=== PATIENT | male | born 1990 | race Caucasian/White ===

== ENCOUNTER 2017-10-26 03:40 | Emergency (ER) | payer OTHER ==
[2017-10-26] MEDS ORDERED: GLUCAGON HCL 1 MG VIAL IM ONE (04:43)
--- NOTE | 2017-10-26 05:48 | EDPHY ---
H & P Stated Complaint: piece of food stuck in throat Time Seen by Provider: 10/26/17 05:27 HPI/ROS: HPI The patient presents with foreign body sensation in his left throat which has been present for the last several hours. Last night, he ate a dinner at 7:00 p.m. Which included a Kale salad. He feels he got a large piece of scale lodged in his throat. He was able to go to sleep but awoke choking and coughing. He was able to drink water without difficulty. He does not notice any drooling or vomiting. He was able to eat cereal and felt that it went down , though took a bit more time than usual. He does have a history of esophagitis. Found on endoscopy about 2 years ago in [place]. He did not tolerate PPIs well so is no longer taking them. REVIEW OF SYSTEMS Constitutional: No fever, no chills. Eyes: No discharge. ENT: No sore throat. Cardiovascular: No chest pain, no palpitations. Respiratory: No cough, no shortness of breath. Gastrointestinal: No abdominal pain, no vomiting. Genitourinary: No hematuria. Musculoskeletal: No back pain. Skin: No rashes. Neurological: No headache. PMHx: Esophagitis Soc Hx: FHx: PHYSICAL General Appearance: Alert, no distress Eyes: Pupils equal and round no pallor or injection ENT, Mouth: Mucous membranes moist, posterior pharynx is non edematous, non erythematous Respiratory: There are no retractions, lungs are clear to auscultation Cardiovascular: Regular rate and rhythm Gastrointestinal: Abdomen is soft and non-tender, no masses, bowel sounds normal Neurological: A&O, moves all extremities Skin: Warm and dry, no rashes Musculoskeletal: Neck is supple non tender Extremities: symmetrical, full range of motion Psychiatric: Patient is oriented X 3, there is no agitation Source: Patient Exam Limitations: No limitations - Personal History Current Tetanus Diphtheria and Acellular Pertussis (TDAP): Unsure - Medical/Surgical History Hx Asthma: No Hx Chronic Respiratory Disease: No Hx Diabetes: No Hx Cardiac Disease: No Hx Renal Disease: No Hx Cirrhosis: No Hx Alcoholism: No Hx HIV/AIDS: No Hx Splenectomy or Spleen Trauma: No Other PMH: esophagitis, gerd, gastritis - Social History Smoking Status: Never smoked Constitutional: Initial Vital Signs Temperature (C) 36.9 C 10/26/17 03:49 Heart Rate 69 10/26/17 03:49 Respiratory Rate 20 10/26/17 03:49 Blood Pressure 138/72 H 10/26/17 03:49 O2 Sat (%) 98 10/26/17 03:49 O2 Delivery Mode Room Air Allergies/Adverse Reactions: No Known Allergies Allergy (Unverified 10/26/17 03:49) Home Medications: Medication Instructions Recorded NK [No Known Home Meds] 10/26/17 Medical Decision Making - Diagnostics Imaging Results: Soft tissue of neck two view shows no foreign body, interpreted by me, radiology interpretation is pending. Differential Diagnosis: This is a 26-year-old male with history of esophagitis who presents with foreign body sensation of throat. Differential diagnosis includes impacted esophageal foreign body, esophageal abrasion, esophagitis, esophageal stricture. Plain films were performed and did not localize any foreign body. In the emergency department, the patient received a dose of glucagon with improvement in his symptoms. He was able to tolerate carbonated beverages without any difficulty. He would like to go home. I have referred him to the package center supervisor airway controller for follow-up. I have advised him to use Tums or Maalox as needed for pain and to drink plenty of fluids. I feel he most likely has an esophageal abrasion from a foreign body which is now dislodged. - Data Points Medications Given: Discontinued Medications Glucagon (Glucagon) 1 mg IM EDNOW ONE Stop: 10/26/17 04:44 Last Admin: 10/26/17 05:20 Dose: 1 mg Departure - Departure Disposition: Home, Routine, Self-Care Clinical Impression: Esophageal foreign body Qualifiers: Encounter type: initial encounter Qualified Code(s): T18.108A - Unspecified foreign body in esophagus causing other injury, initial encounter Condition: Good Instructions: Esophageal Foreign Body (ED) Additional Instructions: Please call the GI doctor listed below to arrange for a follow-up appointment. Referrals: Segundo Hilliard MD [Medical Doctor] - As per Instructions
[2017-10-26 06:32] VITALS: BP 127/74; PULSE 82; RESP 16; TEMP 97.9; O2SAT 96
== END 2017-10-26 06:31 | disposition home or self-care (01) ==
DX: T18.108A Unspecified foreign body in esophagus causing other injury, initial encounter (principal); X58.XXXA Exposure to other specified factors, initial encounter
CPT/HCPCS: J1610

== ENCOUNTER 2018-03-02 13:39 | Emergency (ER) | payer OTHER ==
--- NOTE | 2018-03-02 13:49 | EDPHY ---
HPI/HX/ROS/PE/MDM Narrative: CHIEF COMPLAINT: "Inhaled" food HPI: The patient is a 27 y/o male with a history of esophagitis and esophageal obstruction who believes he just inhaled a piece of steamed broccoli at lunch today. He says he was eating too quickly and "inhaled while the food was half- chewed in my mouth and felt something go down the right side of my wind pipe." He's felt lightheaded and short of breath since then. He is able to swallow normally and denies pain. No history of asthma or other respiratory disease. REVIEW OF SYSTEMS: Aside from elements discussed in the HPI, a comprehensive 10-point review of systems was reviewed and is negative. PMH: Esophagitis, GERD, gastritis, hiatal hernia SOCIAL HISTORY: Lives in [place], employed, . PHYSICAL EXAM: General:Patient is alert, in no acute distress. 98% on room air. ENT:Eyes are normal to inspection. ENT inspection normal. Neck: Normal inspection. Full range of motion. Respiratory:No respiratory distress. Breath sounds have high-pitched bilateral inspiratory wheezing. Normal voice. Talking in full, complete sentences. Cardiovascular: Regular rate and rhythm. Strong peripheral pulses. Normal cap refill. Abdomen:The abdomen is nontender to palpation. There are no peritoneal signs. Back: Normal to inspection. No tenderness to palpation. Skin: Normal color. No rash. Warm and dry. Extremities: Normal appearance. Full range of motion. Neuro: Oriented x3. Normal motor function. Normal sensory function. ED Course: This is a healthy 27 y/o male with a history of esophagitis who is concerned he accidentally inhaled a piece of broccoli today at lunch. He complains of lightheadedness and shortness of breath. On exam, he is speaking in full, complete sentences without stridor, has normal saturation of 98% on room air, and is able to swallow normally. He does have mild inspiratory wheezing bilaterally. Plan for x-rays of chest and soft tissue neck and duo neb for wheezing. Chest and soft tissue neck x-rays do not reveal foreign body or other acute abnormality. Reassessed patient and discussed findings. He is feeling jittery after the duo neb. No signs of respiratory distress. Plan for 1mg PO Ativan. Consulted with Dr. Nash, ENT. They will come scope patient to evaluate for vocal cord dysfunction or possible upper esophageal foreign body. Wheezing has improved. Patient is eager to go home and does not want to stay and wait for ENT. He will be discharged home with standard care and follow up instructions. He understands he needs to follow up with ENT in the next 2-3 days for evaluation and scope. Return precautions discussed. MDM: This patient presents with what sounds like high-pitched upper airway inspiratory wheeze that seems somewhat voluntary. His pulse ox is normal and he can speak in full sentences without difficulty. XRs or neck and chest are unremarkable. Given the fact that he is not coughing at all, I highly doubt the patient has an upper tracheal foreign body present. His symptoms sound more concerning for vocal cord dysfunction or possible other upper airway issue given history of swallowed FBs. In any case, the patient declined ENT evaluation/scope and asked to be discharged. He is stable for discharge. - Data Points Imaging Results: Imaging Impressions Chest X-Ray 03/02/18 13:50 Impression: Clear lungs. No discernible foreign body. Soft Tissue Neck X-Ray 03/02/18 13:50 Impression: Negative. Clear airway. No discernible foreign body. Imaging: Discussed imaging studies w/ dental detail representative Radiologist, I viewed and interpreted images myself Medications Given: Discontinued Medications Albuterol/Ipratropium (Duoneb) 3 ml IH EDNOW ONE Stop: 03/02/18 13:53 Last Admin: 03/02/18 14:18 Dose: 3 ml Lorazepam (Ativan) 1 mg PO EDNOW ONE Stop: 03/02/18 14:31 Last Admin: 03/02/18 14:37 Dose: 1 mg General Time Seen by Provider: 03/02/18 13:45 Initial Vital Signs: Initial Vital Signs Temperature (C) 36.6 C 03/02/18 13:42 Heart Rate 95 03/02/18 13:42 Respiratory Rate 20 03/02/18 13:42 Blood Pressure 123/84 H 03/02/18 13:42 O2 Sat (%) 98 03/02/18 13:42 O2 Delivery Mode Room Air Allergies/Adverse Reactions: No Known Allergies Allergy (Verified 03/02/18 13:40) Home Medications: Medication Instructions Recorded NK [No Known Home Meds] 10/26/17 Departure - Departure Disposition: Home, Routine, Self-Care Clinical Impression: Wheezing Condition: Good Instructions: Wheezing (ED) Additional Instructions: Follow up with ENT in the next 2-3 days. Return to the ED for worsening of condition. Referrals: Nik Nash MD [Medical Doctor] - As per Instructions Report Scribed for: Ford Valenzuela Report Scribed by: Bren Modi Date of Report: 03/02/18 Time of Report: 13:49 Physician Review and Approval Statement: Portions of this note were transcribed by an ED scribe. I personally performed the history, physical exam, and medical decision making; and confirm the accuracy of the information in the transcribed note.
[2018-03-02] MEDS ORDERED: IPRATROPIUM/ALBUTEROL 3 ML DEYVIAL IH ONE (13:52)
[2018-03-02] MEDS ORDERED: LORazepam 1 MG TAB PO ONE (14:30)
[2018-03-02 17:22] VITALS: BP 133/70
== END 2018-03-02 17:22 | disposition home or self-care (01) ==
DX: R06.2 Wheezing (principal)